=== PATIENT | male | born 1980 | race Caucasian/White ===

== ENCOUNTER 2017-10-06 00:04 | Emergency (ER) | payer OTHER ==
[2017-10-06 00:15] VITALS: BP 144/92
[2017-10-06] MEDS ORDERED: DEXAMETHASONE 10 MG/ML VIAL PO STA (00:46)
--- NOTE | 2017-10-06 00:49 | ED Physician Documentation ---
PD HPI BACK PAIN - Stated complaint Stated Complaint: LOW BACK PAIN - Chief complaint Chief Complaint: Back Pain - History obtained from History obtained from: Patient - History of Present Illness Timing - onset: Yesterday Timing - details: Still present Location: Lower, Left Quality: Pain, Similar to prior episodes - Additional information Additional information: Patient is a 37-year-old male who presents with left lower back pain that started yesterday and is keeping him from sleeping tonight. He denies any recent traumatic injury. The pain radiates down his left leg to his heel. It is worse with changes in position. He reports intermittent tingling in his left foot. He denies weakness, fever, or urinary incontinence. He has been using Tylenol and ibuprofen without relief. He reports history of similar symptoms intermittently at least since 2009. Review of Systems Constitutional: denies: Fever Nose: denies: Congestion Cardiac: denies: Chest pain / pressure Respiratory: denies: Dyspnea, Cough GI: denies: Abdominal Pain, Vomiting : denies: Dysuria, Incontinent Skin: denies: Rash Musculoskeletal: reports: Back pain. denies: Neck pain Neurologic: reports: Numbness (Intermittent tingling in left lower extremity to the heel.). denies: Generalized weakness, Focal weakness, Headache PD PAST MEDICAL HISTORY - Past Medical History Psych: Depression, Anxiety Musculoskeletal: Chronic back pain Derm: Psoriasis - Past Surgical History Past Surgical History: No - Present Medications Home Medications: Ambulatory Orders Medication Instructions Recorded Confirmed Methocarbamol [Robaxin] 500 mg PO Q8H PRN #20 tablet 10/06/17 - Allergies Allergies/Adverse Reactions: Allergies Allergy/AdvReac Type Severity Reaction Status Date / Time No Known Drug Allergies Allergy Verified 10/06/17 00:15 - Social History Does the pt smoke?: No Smoking Status: Never smoker Does the pt drink ETOH?: Yes Does the pt have substance abuse?: No - Immunizations Immunizations are current?: Yes PD ED PE NORMAL - Vitals Vital signs reviewed: Yes (Borderline hypertension initially.) - General General: Alert and oriented X 3, Well developed/nourished - HEENT HEENT: Atraumatic - Cardiac Cardiac: RRR - Respiratory Respiratory: No respiratory distress, Clear bilaterally - Abdomen Abdomen: Soft, Non tender - Back Back: No CVA TTP, Other (Tenderness to palpation in the left paralumbar musculature, no tenderness to palpation along the spinous processes.) - Derm Derm: No rash - Extremities Extremities: No edema, No calf tenderness / cord, Other (Straight leg raise test is positive on the left at 30 elevation; negative on the right.) - Neuro Neuro: Alert and oriented X 3, No motor deficit, No sensory deficit Results - Vitals Vitals: Vital Signs - 24 hr 10/06/17 00:12 Temperature 36.3 C L Heart Rate 82 Respiratory 16 Rate Blood Pressure 144/92 H O2 Saturation 99 Oxygen O2 Source Room air PD MEDICAL DECISION MAKING - ED course Complexity details: considered differential, d/w patient ED course: The patient's presentation is significant for recurrent low back pain, that may be associated with sciatica. There is no clinical evidence to suggest epidural abscess, spinal stenosis, or cauda equina syndrome. Treatment in the emergency room included administration of dexamethasone 10 mg orally. He is being discharged with prescription for Robaxin. I discussed with him symptomatic treatment and outpatient follow-up, as well as potentially worrisome signs or symptoms that should prompt reevaluation in the emergency department. - Sepsis Event Vital Signs: Vital Signs - 24 hr 10/06/17 00:12 Temperature 36.3 C L Heart Rate 82 Respiratory 16 Rate Blood Pressure 144/92 H O2 Saturation 99 Oxygen O2 Source Room air Departure - Departure Disposition: 01 Home, Self Care Clinical Impression: Back pain Qualifiers: Back pain location: low back pain Chronicity: acute Back pain laterality: left Sciatica presence: with sciatica Sciatica laterality: sciatica of left side Qualified Code(s): M54.42 - Lumbago with sciatica, left side Condition: Stable Instructions: ED Low Back Pain Injury Follow-Up: [facility] [Provider Group] Prescriptions: Methocarbamol [Robaxin] 500 mg PO Q8H PRN #20 tablet PRN Reason: Spasms Comments: Apply ice pack to your lower back intermittently for the next 3 or 4 days. You can use Robaxin as prescribed if needed for muscle spasms. You can use ibuprofen, up to 800 mg 3 times daily for its anti-inflammatory effect. Let pain be your guide to activity level. Follow up with your primary physician within 1-2 weeks. Call to schedule appointment. Return to the emergency department if you develop increasing back pain, urinary incontinence, increasing numbness or weakness, or otherwise worsening symptoms. Discharge Date/Time: 10/06/17 00:53
== END 2017-10-06 00:53 | disposition home or self-care (01) ==
LOC: ED 00:04
DX: M54.42 Lumbago with sciatica, left side (principal)
CPT/HCPCS: 99283

== ENCOUNTER 2018-01-02 17:21 | Emergency (ER) | payer OTHER ==
--- NOTE | 2018-01-02 17:40 | ED Physician Documentation ---
PD HPI MHE - Stated complaint Stated Complaint: MHE - History obtained from History obtained from: Patient, EMS - History of Present Illness Primary symptom: Suicidal ideation Timing - onset: Other (Has been feeling depressed for a while, states he tried to kill himself 3 weeks ago by taking pills. 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 He did call the suicide help line. Is seen by a psychiatrist [facility] [employer]. Has been diagnosed with depression and PTSD. For the past several weeks is felt voices telling him to kill himself. Does not feel like he can keep himself safe at home. He is currently on Zoloft. He states he was supposed to start a new medication last week but has not started this. Review of Systems Ten Systems: 10 systems reviewed and negative Constitutional: denies: Fever, Chills Ears: denies: Ear pain Nose: denies: Rhinorrhea / runny nose, Congestion Throat: denies: Sore throat Cardiac: denies: Chest pain / pressure Respiratory: denies: Cough, Wheezing GI: denies: Abdominal Pain, Nausea, Vomiting, Diarrhea Skin: denies: Rash Musculoskeletal: denies: Neck pain, Back pain Neurologic: denies: Focal weakness, Numbness, Headache PD PAST MEDICAL HISTORY - Past Medical History Past Medical History: Yes Psych: Depression, Anxiety, Other (PTSD) Musculoskeletal: Chronic back pain Derm: Psoriasis - Past Surgical History Past Surgical History: No - Present Medications Home Medications: Ambulatory Orders Medication Instructions Recorded Confirmed Methocarbamol [Robaxin] 500 mg PO Q8H PRN #20 tablet 10/06/17 Prazosin [Minipress] 01/02/18 Sertraline HCl 1 tab PO QPM 01/02/18 01/02/18 Sertraline [Zoloft] 1 tab PO QDLUNCH 01/02/18 01/02/18 traZODone [Desyrel] 0.5 - 1 tab PO QPM 01/02/18 01/02/18 - Allergies Allergies/Adverse Reactions: Allergies Allergy/AdvReac Type Severity Reaction Status Date / Time No Known Drug Allergies Allergy Verified 10/06/17 00:15 - Social History Does the pt smoke?: No Smoking Status: Never smoker Does the pt drink ETOH?: Yes Does the pt have substance abuse?: No - Immunizations Immunizations are current?: Yes PD ED PE NORMAL - Vitals Vital signs reviewed: Yes - General General: Alert and oriented X 3, No acute distress, Well developed/nourished, Other (Tearful) - HEENT HEENT: PERRL, Moist mucous membranes, Pharynx benign - Neck Neck: Supple, no meningeal sign - Cardiac Cardiac: RRR, Strong equal pulses - Respiratory Respiratory: No respiratory distress, Clear bilaterally - Abdomen Abdomen: Soft, Non tender, Non distended - Derm Derm: Warm and dry - Neuro Neuro: Alert and oriented X 3 - Psych Psych: Normal mood, Other (Tearful) Results - Vitals Vitals: Vital Signs - 24 hr 01/02/18 17:26 Temperature 36.2 C L Heart Rate 105 H Respiratory 18 Rate Blood Pressure 146/93 H O2 Saturation 97 Oxygen O2 Source Room air - Labs Labs: Laboratory Tests 01/02/18 01/02/18 01/02/18 17:56 17:56 17:56 WBC 7.6 RBC 5.11 Hgb 15.4 Hct 44.7 MCV 87.5 MCH 30.2 MCHC 34.6 RDW 12.6 Plt Count 206 MPV 7.8 Neut # (Auto) 5.6 Lymph # (Auto) 1.5 Arroyo # (Auto) 0.4 Eos # (Auto) 0.1 Baso # (Auto) 0.0 Absolute Nucleated RBC 0.00 Nucleated RBC % 0.0 Sodium 136 Potassium 4.0 Chloride 100 L Carbon Dioxide 27 Anion Gap 9.0 BUN 18 Creatinine 0.9 Estimated GFR (MDRD) 95 Glucose 107 H Calcium 9.2 Total Bilirubin 0.4 AST 26 ALT 32 Alkaline Phosphatase 73 Total Protein 8.3 H Albumin 4.8 Globulin 3.5 Albumin/Globulin Ratio 1.4 Lipase 30 TSH 1.85 Urine Color Urine Clarity Urine pH Ur Specific [place] Urine Protein Urine Glucose (UA) Urine Ketones Urine Occult Blood Urine Nitrite Urine Bilirubin Urine Urobilinogen Ur Leukocyte Esterase Ur Microscopic Review Urine Culture Comments Salicylates < 6.0 Urine Opiates Screen Ur Oxycodone Screen Urine Methadone Screen Ur Propoxyphene Screen Acetaminophen < 10 L Ur Barbiturates Screen Ur Tricyclics Screen Ur Phencyclidine Scrn Ur Amphetamine Screen U Methamphetamines Scrn U Benzodiazepines Scrn Urine Cocaine Screen U Cannabinoids Screen Ethyl Alcohol < 5.0 01/02/18 01/02/18 18:42 18:42 WBC RBC Hgb Hct MCV MCH MCHC RDW Plt Count MPV Neut # (Auto) Lymph # (Auto) [place] # (Auto) Eos # (Auto) Baso # (Auto) Absolute Nucleated RBC Nucleated RBC % Sodium Potassium Chloride Carbon Dioxide Anion Gap BUN Creatinine Estimated GFR (MDRD) Glucose Calcium Total Bilirubin AST ALT Alkaline Phosphatase Total Protein Albumin Globulin Albumin/Globulin Ratio Lipase TSH Urine Color YELLOW Urine Clarity CLEAR Urine pH 7.0 Ur Specific [place] 1.010 Urine Protein NEGATIVE Urine Glucose (UA) NEGATIVE Urine Ketones NEGATIVE Urine Occult Blood TRACE-LYSE Urine Nitrite NEGATIVE Urine Bilirubin NEGATIVE Urine Urobilinogen 0.2 (NORMAL) Ur Leukocyte Esterase NEGATIVE Ur Microscopic Review NOT INDICATED Urine Culture Comments NOT INDICATED Salicylates Urine Opiates Screen NEGATIVE Ur Oxycodone Screen NEGATIVE Urine Methadone Screen NEGATIVE Ur Propoxyphene Screen NEGATIVE Acetaminophen Ur Barbiturates Screen NEGATIVE Ur Tricyclics Screen NEGATIVE Ur Phencyclidine Scrn NEGATIVE Ur Amphetamine Screen NEGATIVE U Methamphetamines Scrn NEGATIVE U Benzodiazepines Scrn NEGATIVE Urine Cocaine Screen NEGATIVE U Cannabinoids Screen NEGATIVE Ethyl Alcohol PD MEDICAL DECISION MAKING - ED course Complexity details: reviewed results, re-evaluated patient, considered differential, d/w patient ED course: Patient is medically clear for psychiatric care. There are no beds available all weekend at [facility]. Therefore tele-psychiatry was consulted. [facility] will be signed out to the [facility] emergency department physician, pending tele-psychiatry consult. Will likely need voluntary placement in the morning. Social work consult placed as well. Departure - Departure Clinical Impression: Hallucinations, Suicidal ideation Condition: Stable
[2018-01-02 18:05] LABS: BASOPHILS % (AUTO) 0.4 %; EOSINOPHILS # (AUTO) 0.1 10^3/uL (0.0-0.7); HGB - HEMOGLOBIN 15.4 g/dL (14.0-18.0); LYMPHOCYTES # (AUTO) 1.5 10^3/uL (1.5-3.5); LYMPHOCYTES % (AUTO) 19.7 %; MEAN CORPUSCULAR HEMOGLOBIN 30.2 pg (27.0-31.0); MEAN CORPUSCULAR HGB CONC 34.6 g/dL (32.0-36.0); MEAN CORPUSCULAR VOLUME 87.5 fL (80.0-94.0); MEAN PLATELET VOLUME 7.8 fL (7.4-11.4); MONOCYTES # (AUTO) 0.4 10^3/uL (0.0-1.0); MONOCYTES % (AUTO) 5.4 %; NEUTROPHILS # (AUTO) 5.6 10^3/uL (1.5-6.6); NEUTROPHILS % (AUTO) 73.5 %; PLT - PLATELET COUNT 206 10^3/uL (130-450); RED BLOOD COUNT 5.11 10^6/uL (4.70-6.10); RED CELL DISTRIBUTION WIDTH 12.6 % (12.0-15.0); WHITE BLOOD COUNT 7.6 x10^3/uL (4.8-10.8)
[2018-01-02 18:20] LABS: ACETAMINOPHEN < 10 ug/mL (10-30); ALBUMIN 4.8 g/dL (3.2-5.5); ALBUMIN/GLOBULIN RATIO 1.4 (1.0-2.2); ALKALINE PHOSPHATASE 73 IU/L (42-121); ALT ALANINE AMINOTRANSFERASE 32 IU/L (10-60); AST ASPARTATE AMINOTRANSFERASE 26 IU/L (10-42); BILIRUBIN,TOTAL 0.4 mg/dL (0.2-1.0); BUN - BLOOD UREA NITROGEN 18 mg/dL (6-20); CALCIUM 9.2 mg/dL (8.5-10.3); CARBON DIOXIDE - CO2 27 mmol/L (21-32); CHLORIDE 100 mmol/L (101-111); CREATININE 0.9 mg/dL (0.6-1.2); GFR - MDRD 95 (>89); GLUCOSE 107 mg/dL (70-100); LIPASE 30 U/L (22-51); SALICYLATE < 6.0 mg/dL; SODIUM 136 mmol/L (135-145); TOTAL PROTEIN 8.3 g/dL (6.7-8.2)
[2018-01-02 18:55] LABS: BILIRUBIN,URINE NEGATIVE (NEGATIVE); GLUCOSE, URINE (UA) NEGATIVE (NEGATIVE); KETONES,URINE (UA) NEGATIVE (NEGATIVE); LEUKOCYTE ESTERASE, URINE NEGATIVE (NEGATIVE); NITRITE,URINE NEGATIVE (NEGATIVE); OCCULT BLOOD,URINE TRACE-LYSE (NEGATIVE); PROTEIN,URINE NEGATIVE (NEGATIVE); UROBILINOGEN,URINE 0.2 (NORMAL) E.U./dL (NORMAL)
[2018-01-02 18:57] LABS: MUDS CUTOFF CONCENTRATIONS CUTOFF CONC BELOW:
[2018-01-02 19:00] LABS: CLARITY,URINE CLEAR (CLEAR)
[2018-01-02 19:11] LABS: AMPHETAMINE SCREEN,URINE NEGATIVE (NEGATIVE); BENZODIAZEPINES SCREEN, URINE NEGATIVE (NEGATIVE); COCAINE SCREEN URINE NEGATIVE (NEGATIVE); METHADONE SCREEN, URINE NEGATIVE (NEGATIVE); METHAMPHETAMINES SCREEN, URINE NEGATIVE (NEGATIVE); OPIATE SCREEN, URINE NEGATIVE (NEGATIVE); OXYCODONE SCREEN, URINE NEGATIVE (NEGATIVE); PROPOXYPHENE SCREEN, URINE NEGATIVE (NEGATIVE); TRICYCLIC ANTIDEPRESSANT,URINE NEGATIVE (NEGATIVE)
[2018-01-02] MEDS ORDERED: IBUPROFEN 600 MG TABLET PO STA (19:26)
--- NOTE | 2018-01-02 23:58 | TELEPSYCH PHYS NOTE ---
Telepsych Note - CHIEF COMPLAINT/HX OF PRESENT ILLNESS Cheif Complaint and History of Present Illness: Chief Complaint: "I was struggling." HPI: The patient is a 37-year-old male with a history of depression. He was brought to the hospital after he was found near a bridge threatening to jump off. The patient is in the [place] and he has a history of PTSD. He states that he has been coming to work late due to poor sleep, and sedating medication. He has been reprimanded by his boss numerous times and he also has been told by his commanding officers that he is "playing games." "They don't think that I have a serious illness." The patient also reports stressors in his personal life. He has a kid with special needs and another child with legal issues due to problems in school. "I'm overwhelmed." The patient hears voices telling him to end his life. - SI/HI/SELF HARM SI/HI/SELF HARM (CURRENT OR HISTORY OF):: SI SI/HI/Self Harm Text (Current or History of):: One prior suicide attempt (ingested 7 Zoloft tabs 2 weeks ago) - VIOLENCE/LEGAL/COLLATERAL Violence - Legal - Collateral: Violence: none Legal: none Collateral: none - PSYCHIATRIC HX/TREATMENT HX Psychiatric: Depression, Anxiety, Other (PTSD) Psychiatric/Treatment Hx Other: No prior inpatient treatment. Sees a psychiatrist and therapist. One prior suicide attempt (ingested 7 Zoloft tabs 2 weeks ago) - DRUG/ALCOHOL HX ETOH Use: Liquor - MEDICAL HX Does the pt have a hx of MRSA?: No Skin: Psoriasis Musculoskeletal: Chronic back pain - HOME MEDICATIONS Home Meds (as last confirmed): Patient History Medication Instructions Recorded Confirmed Prazosin [Minipress] 01/02/18 Sertraline HCl 1 tab PO QPM 01/02/18 01/02/18 Sertraline [Zoloft] 1 tab PO QDLUNCH 01/02/18 01/02/18 traZODone [Desyrel] 0.5 - 1 tab PO QPM 01/02/18 01/02/18 - ALLERGIES Allergies (as last confirmed): Allergies Allergy/AdvReac Type Severity Reaction Status Date / Time No Known Drug Allergies Allergy Verified 10/06/17 00:15 - FAMILY PSYCH/SUICIDE/SOCIAL HX-MENTAL Family - Suicide - Social Hx and Mental Status Exam: Family Psychiatric History: Grandmother-Schizophrenia Social History: , lives with and 3 kids Employment: marine mechanic in the [employer] Education: college grad Stressors: see HPI History: [place] since 2008 Abuse: none Mental Status Examination: Attitude and behavior: cooperative Speech: WNL Affect and mood: sad affect and mood Association and thought processes: Linear Thought content: No delusions, + SI, no HI Perception: + hallucinations Sensorium, memory, and orientation: AAOx3 Intellectual functioning: average Insight and judgment: poor - PATIENT PROBLEM LIST (1) Major depressive disorder with psychotic features Impression: The patient is a 37-year-old male with a history of PTSD and depression. He presents to the hospital with suicidal thoughts and command auditory hallucinations. The patient needs immediate psychiatric stabilization and is inappropriate for outpatient treatment. Inpatient care recommended. Continue psych meds.. - TREATMENT/PHARMACOLOGICAL RECOMMENDATION Treatment - Pharmacological - Therapy Recommendations: Treatment Recommendations: Refer to inpatient treatment, continue psych meds Pharmacological: Zoloft 50 mg a.m., Zoloft 100 mg HS Therapy: supportive Level of Care: inpatient - TIME SPENT & PROVIDER LOCATION Telepsych consultation conducted via videoconferencing: Yes List names and roles of persons who participated in consult: [facility] Telepsych Provider Location: [place] Time Telepsych consult began: 02:05 Time Telepsych consult completed: 02:20
--- NOTE | 2018-01-03 00:14 | ED Physician Documentation ---
ED Addendum - Addendum Addendum: 01/03/18 00:13 The patient was evaluated by the [facility] psychiatrist who felt the patient was at potential continue to risk for self-harm and suggested hospitalization. The patient is voluntary and willing so we will have him see social work in the morning for voluntary placement as had been previously planned. The patient is aware and comfortable staying overnight.
--- NOTE | 2018-01-03 20:58 | ED Physician Documentation ---
ED Addendum - Addendum Addendum: 01/03/18 20:57 Patient was accepted to [facility] by Dr. Butterfield. COBRA forms were filled out by Dr. Dudley. Patient will be transported Via [facility].
[2018-01-03 21:51] VITALS: BP 131/90
== END 2018-01-03 21:40 ==
LOC: ED 17:21
DX: R45.851 Suicidal ideations (principal); R44.0 Auditory hallucinations; F32.9 Major depressive disorder, single episode, unspecified; F43.10 Post-traumatic stress disorder, unspecified; Z81.8 Family history of other mental and behavioral disorders; Z91.5 Personal history of self-harm
CPT/HCPCS: 36415; 80053; 80306; 80307; 80320; 80329; 81003; 83690; 84443; 85025; 99284; 99285; A9270; Q3014; 81001; 87086